=== PATIENT | female | born 1950 | race Caucasian/White ===

== ENCOUNTER 2019-08-09 11:55 | Inpatient (IN) | payer BC, MEDICARE ==
[~2019-08-09] VITALS: Ht 162.6 cm; Wt 47.6 kg
[2019-08-09] MEDS ORDERED: SODIUM CHLORIDE 0.9% 500 ML IV ONE (14:11)
[2019-08-09] MEDS ORDERED: METHYLPREDNISOLONE SOD SUCC 125 MG/2 ML VIAL IV STA (14:11)
[2019-08-09] MEDS ORDERED: LEVOFLOXACIN 750MG PREMIX 150 ML IV ONE (14:15)
[2019-08-09] MEDS ORDERED: IPRATROPIUM/ALBUTEROL 0.5-3(2.5)MG/3ML NEB HHN ONE (14:15)
[2019-08-09 15:27] LABS: BASOPHILS % 0.4 % (0.0-2.0); HEMATOCRIT. 34.7 % (36.0-48.0); HEMOGLOBIN. 11.1 g/dL (12.0-16.0); LYMPHOCYTES % 9.5 % (20.0-50.0); MEAN CORPUSCULAR VOLUME 74.9 fL (81.0-99.0); MEAN PLATELET VOLUME 8.9 fl (7.4-10.4); MONOCYTES % 4.3 % (2.0-8.0); NEUTROPHILS % 85.8 % (40.0-76.0); PLATELET 161 x1000/uL (130-400); RED BLOOD CELL COUNT 4.64 mill/uL (4.2-5.4); RED CELL DISTRIBUTION WIDTH 17.3 % (11.6-14.6)
[2019-08-09 15:28] LABS: CHLORIDE 107 mEq/L (98-107)
[2019-08-09 15:36] LABS: CREATINE KINASE 201 IU/L (26-192)
[2019-08-09 15:39] LABS: CREATINE KINASE MB FRACTION 1.2 ng/mL (0.5-3.6)
[2019-08-09] MEDS ORDERED: POTASSIUM CHLORIDE 20MEQ TABLET SR PO ONE (16:00)
[2019-08-09] MEDS ORDERED: HYDROCODONE/ACETAMINOPHEN 5/325MG TABLET PO PRN (17:15)
[2019-08-09] MEDS ORDERED: ONDANSETRON HCL 4MG/2ML INJ IV PRN (17:15)
[2019-08-09] MEDS ORDERED: NA PHOS,M-B/NA PHOS,DI-BA ENEMA 118ML PR PRN (17:15)
[2019-08-09] MEDS ORDERED: CLONIDINE 0.1MG TABLET PO PRN (17:15)
[2019-08-09] MEDS ORDERED: GUAIFENESIN 200MG/10ML SUGAR FREE UDC PO PRN (17:15)
[2019-08-09] MEDS ORDERED: DOCUSATE SODIUM 100MG CAPSULE PO PRN (17:15)
[2019-08-09] MEDS ORDERED: MORPHINE SULFATE 2 MG/ML CPJ (NOT FOR IM USE) IV PRN (17:15)
[2019-08-09] MEDS ORDERED: MAGNESIUM/ALUMINUM HYDROXIDE/SIMETHICONE 30ML UDC PO PRN (17:15)
[2019-08-09] MEDS ORDERED: KCL 10MEQ/50ML PREMIX 50 ML IV NR (17:15)
[2019-08-09] MEDS ORDERED: PIPERACILLIN/TAZ 3.375G PREMIX 50 ML IV NR ×2 (18:00→23:30)
[2019-08-09] MEDS: ENOXAPARIN 40MG/0.4ML SYR SUBCUT SCH (20:29)
[2019-08-09] MEDS ORDERED: POTASSIUM CHLORIDE INJ 40 MEQ in DEXT 5% WATER 250 ML IV NR (22:00)
[2019-08-10 00:14] LABS: CREATINE KINASE MB FRACTION 1.8 ng/mL (0.5-3.6)
[2019-08-10 00:35] VITALS: BP_SYST 100; BP_DIAS 41; BP_DIAS 44
[2019-08-10] MEDS ORDERED: SITA100T11 PO (02:27)
[2019-08-10] MEDS ORDERED: MIRT7.5T11 PO (02:27)
[2019-08-10] MEDS ORDERED: FURO40TA5 PO (02:27)
[2019-08-10] MEDS ORDERED: POTA20TA82 PO (02:27)
[2019-08-10] MEDS ORDERED: ESCI10TA61 PO (02:27)
[2019-08-10] MEDS ORDERED: CLOP75TA33 PO (02:27)
[2019-08-10] MEDS ORDERED: LISI-604 PO (02:27)
[2019-08-10] MEDS ORDERED: METO25TA6 PO (02:27)
[2019-08-10] MEDS ORDERED: SUCR1TAB PO (02:27)
[2019-08-10] MEDS ORDERED: TOPUD PO (02:27)
[2019-08-10] MEDS ORDERED: PANT40TA4 PO (02:27)
[2019-08-10] MEDS ORDERED: SIMV-46 PO (02:27)
[2019-08-10] MEDS ORDERED: GLIP5TAB12 PO (02:27)
[2019-08-10] MEDS ORDERED: ASPI-1158 PO (02:27)
[2019-08-10] MEDS: PIPERACILLIN/TAZOBACTAM 3.375 G in DEXT 5% WATER 100 ML IV SCH ×3 (05:03→23:05)
[2019-08-10] MEDS ORDERED: DEXTROSE 50% WATER 50ML SYRINGE IV PRN (05:30)
[2019-08-10] MEDS: BLOOD SUGAR DIAGNOSTIC STRIP TEST SCH ×4 (06:55→22:05)
[2019-08-10 08:00] VITALS: BP 127/44
[2019-08-10] MEDS: INSULIN LISPRO 100 UNITS/ML SUBCUT SCH ×4 (08:10→22:26)
[2019-08-10 08:19] LABS: BG BASE EXCESS -4.5 mmol/L (-2.0-2.0); BG CARBOXYHEMOGLOBIN 1.2 % (0.5-1.5); BG HCO3 ACT 20.6 mmol/L (22.0-26.0); BG METHEMOGLOBIN 0.3 % (0.0-1.5); BG OXYGEN SATURATION 90.9 % (92.0-98.5); BG OXYHEMOGLOBIN 89.5 % (94.0-97.0); BG PH 7.352 (7.350-7.450); BG PO2 63.6 mmHg (75.0-100.0); BG SAMPLE SITE RIGHT RADIAL; BG TOTAL HEMOGLOBIN 10.9 g/dL (12.0-18.0); BG VENT MODE NASAL CANNULA
[2019-08-10] MEDS: METOPROLOL TARTRATE 25MG TABLET PO SCH ×2 (09:00→21:00)
[2019-08-10 09:20] LABS: BASOPHILS % 0.3 % (0.0-2.0); HEMOGLOBIN. 10.9 g/dL (12.0-16.0); LYMPHOCYTES % 12.8 % (20.0-50.0); MEAN CORPUSCULAR HEMOGLOBIN 24.9 pg (28.0-32.0); MEAN CORPUSCULAR VOLUME 75.5 fL (81.0-99.0); MEAN PLATELET VOLUME 9.5 fl (7.4-10.4); MONOCYTES % 4.3 % (2.0-8.0); NEUTROPHILS % 82.6 % (40.0-76.0); PLATELET 155 x1000/uL (130-400); RED BLOOD CELL COUNT 4.37 mill/uL (4.2-5.4); RED CELL DISTRIBUTION WIDTH 17.4 % (11.6-14.6)
[2019-08-10 09:53] LABS: CHLORIDE 114 mEq/L (98-107)
[2019-08-10 10:02] LABS: LDL CHOLESTEROL 49 mg/dL (5-100)
[2019-08-10 10:03] LABS: CREATINE KINASE 118 IU/L (26-192); CREATINE KINASE MB FRACTION 1.5 ng/mL (0.5-3.6); HDL CHOLESTEROL 17 mg/dL (40-59); T4 FREE 1.27 ng/dL (0.76-1.46)
[2019-08-10] MEDS: ASPIRIN 81MG EC TABLET PO SCH (11:04)
[2019-08-10] MEDS: POTASSIUM CHLORIDE 20MEQ TABLET SR PO SCH (11:10)
[2019-08-10] MEDS: SUCRALFATE 1G TABLET PO SCH ×2 (11:10→18:02)
[2019-08-10] MEDS: PANTOPRAZOLE 40MG DR TABLET PO SCH (11:11)
[2019-08-10] MEDS: CLOPIDOGREL 75MG TABLET PO SCH (11:11)
[2019-08-10 12:00] VITALS: BP 116/51
[2019-08-10] MEDS ORDERED: IPRATROPIUM/ALBUTEROL 0.5-3(2.5)MG/3ML NEB HHN PRN (12:45)
[2019-08-10 16:00] VITALS: BP 130/62
[2019-08-10 20:00] VITALS: BP 139/81
[2019-08-10] MEDS: ENOXAPARIN 40MG/0.4ML SYR SUBCUT SCH (22:05)
[2019-08-10] MEDS: BUDESONIDE 0.5MG/2ML NEB HHN SCH (22:19)
[2019-08-10] MEDS: IPRATROPIUM/ALBUTEROL 0.5-3(2.5)MG/3ML NEB HHN SCH (22:24)
[2019-08-11] VITALS: BP 101/39
[2019-08-11] MEDS: ACETAMINOPHEN 325MG TABLET PO PRN ×2 (00:47→16:58)
[2019-08-11 04:00] VITALS: BP 108/46
[2019-08-11] MEDS: IPRATROPIUM/ALBUTEROL 0.5-3(2.5)MG/3ML NEB HHN SCH ×4 (04:26→20:20)
[2019-08-11] MEDS: PIPERACILLIN/TAZOBACTAM 3.375 G in DEXT 5% WATER 100 ML IV SCH (05:57)
[2019-08-11] MEDS: BLOOD SUGAR DIAGNOSTIC STRIP TEST SCH ×4 (06:40→21:10)
[2019-08-11 08:00] VITALS: BP 118/50
[2019-08-11] MEDS: INSULIN LISPRO 100 UNITS/ML SUBCUT SCH ×4 (08:10→21:35)
[2019-08-11] MEDS: PANTOPRAZOLE 40MG DR TABLET PO SCH (08:23)
[2019-08-11] MEDS: POTASSIUM CHLORIDE 20MEQ TABLET SR PO SCH (08:23)
[2019-08-11] MEDS: CLOPIDOGREL 75MG TABLET PO SCH (08:23)
[2019-08-11] MEDS: SUCRALFATE 1G TABLET PO SCH ×2 (08:24→16:56)
[2019-08-11] MEDS: ASPIRIN 81MG EC TABLET PO SCH (08:24)
[2019-08-11] MEDS ORDERED: ASPIRIN 81MG EC TABLET PO SCH (09:00)
[2019-08-11] MEDS: BUDESONIDE 0.5MG/2ML NEB HHN SCH ×2 (09:24→20:20)
[2019-08-11] MEDS: FUROSEMIDE 20MG/2ML VIAL IVP SCH (10:39)
[2019-08-11] MEDS: GUAIFENESIN 600MG ER TABLET PO SCH ×2 (10:39→21:24)
[2019-08-11] MEDS: CEFTRIAXONE 1 G PREMIX 50 ML IV SCH (10:40)
[2019-08-11 12:00] VITALS: BP 114/45
[2019-08-11] MEDS ORDERED: IBUPROFEN 400MG TABLET PO PRN (15:45)
[2019-08-11] MEDS ORDERED: IBUPROFEN 200MG TABLET PO PRN (15:45)
[2019-08-11 16:00] VITALS: BP 116/36
[2019-08-11] MEDS: CITALOPRAM HYDROBROMIDE 10MG TABLET PO SCH (16:57)
[2019-08-11 20:00] VITALS: BP 97/43
[2019-08-11] MEDS: MIRTAZAPINE 15MG TABLET PO SCH (21:24)
[2019-08-11] MEDS: ATORVASTATIN CALCIUM 20MG TABLET PO SCH (21:24)
[2019-08-11] MEDS: ENOXAPARIN 30MG/0.3ML SYR SUBCUT SCH (21:25)
[2019-08-12] VITALS: BP 116/36
[2019-08-12 04:00] VITALS: BP 116/43
[2019-08-12] MEDS: PANTOPRAZOLE 40MG DR TABLET PO SCH (06:43)
[2019-08-12] MEDS: INSULIN LISPRO 100 UNITS/ML SUBCUT SCH ×4 (06:44→22:09)
[2019-08-12] MEDS: BLOOD SUGAR DIAGNOSTIC STRIP TEST SCH ×4 (06:44→21:00)
[2019-08-12] MEDS: IPRATROPIUM/ALBUTEROL 0.5-3(2.5)MG/3ML NEB HHN SCH ×3 (07:24→21:22)
[2019-08-12] MEDS: BUDESONIDE 0.5MG/2ML NEB HHN SCH ×2 (07:24→21:22)
[2019-08-12 08:00] VITALS: BP 114/51
[2019-08-12 08:15] LABS: CHLORIDE 111 mEq/L (98-107)
[2019-08-12 08:30] LABS: BASOPHILS % 0.8 % (0.0-2.0); EOSINOPHILS % 3.2 % (0.0-5.0); HEMATOCRIT. 35.6 % (36.0-48.0); HEMOGLOBIN. 11.3 g/dL (12.0-16.0); LYMPHOCYTES % 31.2 % (20.0-50.0); MEAN CORPUSCULAR HEMOGLOBIN 23.8 pg (28.0-32.0); MEAN CORPUSCULAR VOLUME 75.1 fL (81.0-99.0); MEAN PLATELET VOLUME 9.7 fl (7.4-10.4); MONOCYTES % 8.8 % (2.0-8.0); PLATELET 155 x1000/uL (130-400); RED BLOOD CELL COUNT 4.74 mill/uL (4.2-5.4); RED CELL DISTRIBUTION WIDTH 17.8 % (11.6-14.6)
[2019-08-12] MEDS: FUROSEMIDE 20MG/2ML VIAL IVP SCH (09:41)
[2019-08-12] MEDS: SUCRALFATE 1G TABLET PO SCH ×2 (09:41→17:38)
[2019-08-12] MEDS: GUAIFENESIN 600MG ER TABLET PO SCH ×2 (09:42→22:09)
[2019-08-12] MEDS: CITALOPRAM HYDROBROMIDE 10MG TABLET PO SCH (09:42)
[2019-08-12] MEDS: POTASSIUM CHLORIDE 20MEQ TABLET SR PO SCH (09:42)
[2019-08-12 12:00] VITALS: BP 139/50
[2019-08-12] MEDS: ASPIRIN 81MG EC TABLET PO SCH (12:11)
[2019-08-12] MEDS: CEFTRIAXONE 1 G PREMIX 50 ML IV SCH (12:11)
[2019-08-12] MEDS: CLOPIDOGREL 75MG TABLET PO SCH (12:12)
[2019-08-12 16:00] VITALS: BP 128/45
[2019-08-12 20:00] VITALS: BP 124/47
[2019-08-12] MEDS: ENOXAPARIN 30MG/0.3ML SYR SUBCUT SCH (22:08)
[2019-08-12] MEDS: ATORVASTATIN CALCIUM 20MG TABLET PO SCH (22:09)
[2019-08-12] MEDS: MIRTAZAPINE 15MG TABLET PO SCH (22:09)
[2019-08-12] MEDS: METOPROLOL TARTRATE 25MG TABLET PO SCH ×2 (22:09→22:11)
[2019-08-13] VITALS: BP 115/37
[2019-08-13] MEDS: IPRATROPIUM/ALBUTEROL 0.5-3(2.5)MG/3ML NEB HHN SCH ×3 (02:26→15:53)
[2019-08-13 04:00] VITALS: BP 121/48
[2019-08-13] MEDS: BLOOD SUGAR DIAGNOSTIC STRIP TEST SCH ×2 (06:55→12:40)
[2019-08-13 08:00] VITALS: BP 114/64
[2019-08-13] MEDS ORDERED: LIDOCAINE HCL 1% 20ML VIAL (Pyxis) INJ ONE (08:31)
[2019-08-13] MEDS: INSULIN LISPRO 100 UNITS/ML SUBCUT SCH ×2 (09:53→13:49)
[2019-08-13] MEDS: SUCRALFATE 1G TABLET PO SCH (10:03)
[2019-08-13] MEDS: POTASSIUM CHLORIDE 20MEQ TABLET SR PO SCH (10:03)
[2019-08-13] MEDS: CLOPIDOGREL 75MG TABLET PO SCH (10:03)
[2019-08-13] MEDS: ASPIRIN 81MG EC TABLET PO SCH (10:03)
[2019-08-13] MEDS: GUAIFENESIN 600MG ER TABLET PO SCH (10:03)
[2019-08-13] MEDS: METOPROLOL TARTRATE 25MG TABLET PO SCH (10:05)
[2019-08-13] MEDS: FUROSEMIDE 20MG/2ML VIAL IVP SCH (10:05)
[2019-08-13] MEDS: BUDESONIDE 0.5MG/2ML NEB HHN SCH (10:23)
[2019-08-13] MEDS: CEFTRIAXONE 1 G PREMIX 50 ML IV SCH (10:27)
[2019-08-13] MEDS: CITALOPRAM HYDROBROMIDE 10MG TABLET PO SCH (10:27)
[2019-08-13] MEDS: PANTOPRAZOLE 40MG DR TABLET PO SCH (10:28)
[2019-08-13 12:00] VITALS: BP 111/55
[2019-08-13 15:35] VITALS: BP 111/55
== END 2019-08-13 17:48 | disposition home health service (06) | DRG 291 ==
LOC: EDBD 11:55 → ER 12:36 → 7WST 16:47 → EDBEDREQ 16:55 → ENRESERV 23:22
PROVIDERS: ADMIT Hospitalist; ATTEND Hospitalist
PROC: 02HV33Z Insertion of Infusion Device into Superior Vena Cava, Percutaneous Approach (ICD-10-PCS; principal; 2019-08-13)
PROC: B5181ZA Fluoroscopy of Superior Vena Cava using Low Osmolar Contrast, Guidance (ICD-10-PCS; 2019-08-13)
PROC: B548ZZA Ultrasonography of Superior Vena Cava, Guidance (ICD-10-PCS; 2019-08-13)
DX: I50.43 Acute on chronic combined systolic (congestive) and diastolic (congestive) heart failure (principal); J18.9 Pneumonia, unspecified organism; J96.01 Acute respiratory failure with hypoxia; N39.0 Urinary tract infection, site not specified; Z16.29 Resistance to other single specified antibiotic; J44.0 Chronic obstructive pulmonary disease with (acute) lower respiratory infection; E11.51 Type 2 diabetes mellitus with diabetic peripheral angiopathy without gangrene; E87.6 Hypokalemia; I27.20 Pulmonary hypertension, unspecified; E78.5 Hyperlipidemia, unspecified; W06.XXXA Fall from bed, initial encounter; K21.9 Gastro-esophageal reflux disease without esophagitis; E87.5 Hyperkalemia; I11.0 Hypertensive heart disease with heart failure; F17.210 Nicotine dependence, cigarettes, uncomplicated; Z87.11 Personal history of peptic ulcer disease; Z82.49 Family history of ischemic heart disease and other diseases of the circulatory system; Z95.828 Presence of other vascular implants and grafts; Z90.49 Acquired absence of other specified parts of digestive tract
CPT/HCPCS: 36415; 36573; 36600; 71045; 76937; 80053; 80061; 82375; 82550; 82553; 82805; 82962; 83605; 83735; 83880; 84439; 84443; 84481; 84484; 85025; 87077; 87186; 87804; 93005; 93306; 93970; 94640; 97116; 97162; 97535; 99285; C1725; J0696; J1650; J1815; J1940; J1956; J2543; J2930; J3480; J3490; J7040; J7060; J7620; J7626